=== PATIENT | male | born 1960 | race African-American/Black ===

== ENCOUNTER 2020-03-25 12:37 | Day surgery (SDC) | payer OTHER ==
[2020-03-22 09:52] VITALS: BMI 34.4
--- OUTSIDE RECORDS SUMMARY | 2020-03-25 12:47 | XMS ---
:1960 Author Organization [facility] Support Name Relationship Address Phone SE Unavailable Unavailable Unavailable AUDREY MORAN [address], [address] [phone] [place] [address] Re-disclosure Warning The records that you are about to access may contain information from federally- assisted alcohol or drug abuse programs. If such information is present, then the following federally mandated warning applies: This information has been disclosed to you from records protected by federal confidentiality rules (42 CFR part 2). The federal rules prohibit you from making any further disclosure of this information unless further disclosure is expressly permitted by the written consent of the person to whom it pertains or as otherwise permitted by 42 CFR part 2. A general authorization for the release of medical or other information is NOT sufficient for this purpose. The Federal rules restrict any use of the information to criminally investigate or prosecute any alcohol or drug abuse patient.The records that you are about to access may contain highly sensitive health information, the redisclosure of which is protected by Article 27-F of the [facility] Public Health law. If you continue you may haveaccess to information: Regarding HIV / AIDS; Provided by facilities licensed or operated by the [facility] Office of Mental Health; or Provided by the [facility] Office for People With Developmental Disabilities. If such information is present, then the following [facility] mandated warning applies: This information has been disclosed to you from confidential records which are protected by state law. State law prohibits you from making any further disclosure of this information without the specific written consent of the person to whom it pertains, or as otherwise permitted by law. Any unauthorized further disclosure in violation of state law may result in a fine or residential sentence or both. A general authorization for the release of medical or other information is NOT sufficient authorization for further disclosure. Insurance Providers Payer name Policy type Policy ID Covered Covered alliance party's Policy P samantha / Coverage alliance party ID relationship to [facility] ormation type land [employer] [id number] HEALTH CARE HMO/POS/EPO Results ID Date Data Source [id number] 03/22/2020 09:32:00 AM EDT [facility] Name Value Range Interpretation Description Data Sup porting Code Source(s) Document(s ) SARS [facility] coronavirus 2 RNA This lab was ordered by MARY LOU GUSTAFSON and reported by [facility]. Procedure
[2020-03-25 16:21] VITALS: PULSE 73; TEMP 97.5
[2020-03-25 16:28] VITALS: BP 130/92
--- NOTE | 2020-03-29 16:02 | PATH ---
Surgical Pathology Report Patient Name: ANSELMO MORAN [facility] [place]. Rec. #: [id number] /Age/Gender: 1960 (Age: 59) / M Account: [id number] Location: [facility] Taken: 03/25/2020 Received: 03/25/2020 Reported: 03/29/2020 Physicians: Norma Mansfield M.D. Specimen(s) Received A: BIOPSY SECOND PORTION DUODENUM B: BIOPSY GASTRIC ANTRIUM C: BIOPSY GE JUNCTION Clinical History Abdominal pain Postoperative diagnosis: Gastritis Final Diagnosis A. SECOND PORTION DUODENUM, BIOPSY: DUODENAL MUCOSA WITH NO SIGNIFICANT PATHOLOGIC CHANGE. NO HISTOLOGIC EVIDENCE OF INTRAEPITHELIAL LYMPHOCYTOSIS. B. GASTRIC ANTRUM, BIOPSY: GASTRIC MUCOSA WITH CHRONIC GASTRITIS. IMMUNOSTAIN FOR H. PYLORI IS NEGATIVE. NEGATIVE FOR INTESTINAL METAPLASIA. C. GE JUNCTION, BIOPSY: GASTRIC MUCOSA WITH MILD CHRONIC INFLAMMATION. NEGATIVE FOR INTESTINAL METAPLASIA. Electronically Signed Spencer Prado M.D. Gross Description A. Received in formalin, labeled "biopsy second portion of duodenum" is a justice, irregular portion of soft tissue measuring 0.3 cm. in greatest dimension. The specimen is submitted in toto in one cassette. B. Received in formalin, labeled "biopsy gastric antrum" is a justice, irregular portion of soft tissue measuring 0.4 cm. in greatest dimension. The specimen is submitted in toto in one cassette. C. Received in formalin, labeled "biopsy GE junction" are 2 justice, irregular portions of soft tissue measuring 0.1 and 0.3 cm. in greatest dimension. The specimens are submitted in toto in one cassette. 03/28/2020 saudi03/28/2020
== END 2020-03-25 16:29 | disposition home or self-care (01) ==
LOC: FASU-ENDO 12:37
PROVIDERS: ATTEND Internal Medicine Gastroenterology
PROC: 0DB68ZX Excision of Stomach, Via Natural or Artificial Opening Endoscopic, Diagnostic (ICD-10-PCS; 2020-03-25)
PROC: 0DB48ZX Excision of Esophagogastric Junction, Via Natural or Artificial Opening Endoscopic, Diagnostic (ICD-10-PCS; 2020-03-25)
PROC: 0DB98ZX Excision of Duodenum, Via Natural or Artificial Opening Endoscopic, Diagnostic (ICD-10-PCS; principal; 2020-03-25 15:03)
DX: K29.50 Unspecified chronic gastritis without bleeding (principal); K20.80 Other esophagitis without bleeding; R10.13 Epigastric pain
CPT/HCPCS: 88305-TC; 88342-TC

== ENCOUNTER 2021-05-16 19:30 | Emergency (ER) | payer OTHER ==
[2021-05-16 19:53] VITALS: BP 135/91; PULSE 71; TEMP 98.2; BMI 38.0
[2021-05-16] MEDS ORDERED: DIPHTH,PERTUSS(ACELL),TET 0.5 ML DISP.SYRIN IM ONE (20:06)
== END 2021-05-16 21:50 | disposition home or self-care (01) ==
LOC: JERFT 19:30 → JER 19:30 → JERFT 21:50
PROC: 0HQGXZZ Repair Left Hand Skin, External Approach (ICD-10-PCS; principal; 2021-05-16)
PROC: 3E0234Z Introduction of Serum, Toxoid and Vaccine into Muscle, Percutaneous Approach (ICD-10-PCS; 2021-05-16)
DX: S61.211A Laceration without foreign body of left index finger without damage to nail, initial encounter (principal); W26.8XXA Contact with other sharp object(s), not elsewhere classified, initial encounter
CPT/HCPCS: 90715; 99284-25

== ENCOUNTER 2021-06-03 09:43 | Emergency (ER) | payer OTHER ==
[2021-06-03 10:04] VITALS: BP 153/54; PULSE 58; TEMP 97.7; BMI 36.9
== END 2021-06-03 11:12 | disposition home or self-care (01) ==
LOC: JERFT 09:43 → JER 09:43 → JERFT 11:12
DX: S61.211A Laceration without foreign body of left index finger without damage to nail, initial encounter (principal); Y99.9 Unspecified external cause status; Z48.02 Encounter for removal of sutures
CPT/HCPCS: 99281-25